=== PATIENT | male | born 2005 | race Caucasian/White ===

== ENCOUNTER 2024-09-08 11:00 | Outpatient (RCR) | payer BC, SELFPAY | END 2024-12-24 08:35 | disposition home or self-care (01) | PROVIDERS: Visit Provider Family Medicine | DX: M54.16 Radiculopathy, lumbar region (principal); M43.06 Spondylolysis, lumbar region; M62.81 Muscle weakness (generalized); M54.50 Low back pain, unspecified; Z51.89 Encounter for other specified aftercare | CPT/HCPCS: 97110; 97140; 97161 ==

== ENCOUNTER 2024-12-19 13:30 | Outpatient (CLI) | payer BC, SELFPAY | END 2024-12-19 13:31 | disposition home or self-care (01) | LOC: NFLDUCREF 13:32 | PROVIDERS: Visit Provider Nurse Practitioner Family | DX: S61.409A Unspecified open wound of unspecified hand, initial encounter (principal) | CPT/HCPCS: 87070 ==

== ENCOUNTER 2025-02-09 16:45 | Outpatient (RCR) | payer BC, SELFPAY | END 2025-06-09 23:59 | disposition home or self-care (01) | PROVIDERS: Visit Provider Orthopaedic Surgery Hand Surgery | DX: Z48.89 Encounter for other specified surgical aftercare (principal); Z51.89 Encounter for other specified aftercare | CPT/HCPCS: 97035; 97110; 97140; 97165; X5282 ==